=== PATIENT | female | born 2000 | race Hispanic/Latino ===

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

== ENCOUNTER 2018-02-21 18:36 | Emergency (ER) | payer SELFPAY ==
[2018-02-21] MEDS ORDERED: IBUPROFEN 600 MG TABLET ONE (18:52)
== END 2018-02-21 19:48 | disposition home or self-care (01) ==
LOC: EDH 18:36
DX: R51 Headache (principal); M41.9 Scoliosis, unspecified
CPT/HCPCS: 99282

== ENCOUNTER 2018-10-29 11:53 | Emergency (ER) | payer OTHER ==
[2018-10-29] MEDS ORDERED: ACETAMINOPHEN 325 MG TAB ONE (12:31)
[2018-10-29 12:40] LABS: HCG,QUAL RESULT NEGATIVE (NEGATIVE)
[2018-10-29 12:41] LABS: APPEARANCE,URINE Clear (CLEAR); BILIRUBIN,URINE Negative (NEGATIVE); COLOR,URINE Yellow (YELLOW); GLUCOSE, URINE (UA) Negative (NEGATIVE); KETONES,URINE 15 mg/dL (NEGATIVE); LEUKOCYTE ESTERASE ,URINE Small (NEGATIVE); NITRATE,URINE Positive (NEGATIVE); OCCULT BLOOD,URINE Negative (NEGATIVE); PH,URINE 8.5 (5.0-8.0); PROTEIN,URINE Negative (NEGATIVE)
[2018-10-29] MEDS ORDERED: CEFTRIAXONE SODIUM 1 GM ONE (13:00)
[2018-10-29] MEDS ORDERED: LIDOCAINE HCL-MPF 1% 2ML VIAL ONE (13:00)
[2018-10-29 13:12] LABS: BACTERIA,URINE Many /HPF (None Seen); RBC,URINE 0-1 /HPF (0-1); SQUAMOUS EPITHELIAL CELL,UR Few /HPF (0-2)
== END 2018-10-29 13:20 | disposition home or self-care (01) ==
LOC: EDH 11:53
DX: N39.0 Urinary tract infection, site not specified (principal); R50.81 Fever presenting with conditions classified elsewhere
CPT/HCPCS: 81001; 81025; 96372; 99283; J0696; J3490

== ENCOUNTER 2019-03-28 19:54 | Emergency (ER) | payer OTHER ==
[2019-03-28 20:51] LABS: APPEARANCE,URINE CLEAR (CLEAR); BILIRUBIN,URINE NEGATIVE (NEGATIVE); COLOR,URINE YELLOW (YELLOW); GLUCOSE, URINE (UA) NEGATIVE (NEGATIVE); KETONES,URINE NEGATIVE (NEGATIVE); LEUKOCYTE ESTERASE ,URINE TRACE (NEGATIVE); NITRATE,URINE NEGATIVE (NEGATIVE); OCCULT BLOOD,URINE NEGATIVE (NEGATIVE); PROTEIN,URINE NEGATIVE (NEGATIVE)
[2019-03-28 20:55] LABS: HCG,QUAL RESULT NEGATIVE (NEGATIVE)
[2019-03-28 21:05] LABS: RBC,URINE 0-1 /HPF (0-1)
[2019-03-28 21:06] LABS: BACTERIA,URINE Few /HPF (None Seen); MUCUS,URINE Rare LPF (None Seen); SQUAMOUS EPITHELIAL CELL,UR Few /HPF (0-2)
[2019-03-28] MEDS ORDERED: PHENAZOPYRIDINE HCL 200 MG TABLET ONE (21:36)
== END 2019-03-28 21:43 | disposition home or self-care (01) ==
LOC: EDH 19:54
DX: N39.0 Urinary tract infection, site not specified (principal)
CPT/HCPCS: 81001; 81025

== ENCOUNTER 2023-08-21 05:52 | Emergency (ER) | payer OTHER ==
[~2023-08-21] VITALS: Ht 162.6 cm; Wt 52.2 kg
[2023-08-21 06:24] LABS: RAPID GROUP A STREP negative (NEGATIVE)
[2023-08-21 06:26] LABS: SARS-CoV-2, RNA, NAAT POSITIVE SARS CoV-2 (NEGATIVE)
[2023-08-21 06:33] LABS: INFLUENZA TYPE A Negative For Type A (NEGATIVE); INFLUENZA TYPE B Negative For Type B (NEGATIVE)
[2023-08-21] MEDS ORDERED: ALBUHFA IH (06:41)
[2023-08-21] MEDS ORDERED: METO-296 PO (06:41)
[2023-08-21] MEDS ORDERED: FAMO-136 PO (06:41)
[2023-08-21] MEDS ORDERED: KETOROLAC 60 MG VIAL (30MG/ML) IM ONE (07:00)
[2023-08-21] MEDS ORDERED: SOLU-MEDROL 125MG VIAL IM ONE (07:00)
[2023-08-21 07:40] VITALS: BP 125/78; PULSE 78; RESP 18; O2SAT 98
== END 2023-08-21 07:42 | disposition home or self-care (01) ==
LOC: EDH 05:52
DX: U07.1 COVID-19 (principal); G43.909 Migraine, unspecified, not intractable, without status migrainosus
CPT/HCPCS: 99284; 87635; 87880; 87804 ×2; 96372 ×2; C9803; J2930; J1885